=== PATIENT | female | born 1950 | race Caucasian/White ===

== ENCOUNTER 2016-12-19 20:30 | Emergency (ER) | payer SELFPAY ==
[~2016-12-19] VITALS: Ht 157.5 cm; Wt 53.5 kg
--- NOTE | 2016-12-19 21:18 | ED SKIN/ALLERGY COMPLAINT ---
History of Present Illness General Chief Complaint: Animal/Insect Bite Stated Complaint: ?BUG BITE TO L SHOULDER, SWOLLEN PER PT Source: patient Exam Limitations: no limitations Vital Signs & Intake/Output Vital Signs & Intake/Output Vital Signs Date Time Temp Pulse Resp B/P B/P Pulse O2 O2 Flow FiO2 Mean Ox Delivery Rate 12/19 2222 60 162/70 12/193 98.1 70 16 192/98 12/19 2122 98.1 70 16 192/98 12/19 2116 192/98 12/19 2052 98.1 70 16 211/88 98 Room Air ED Intake and Output 12/20 0000 12/19 1200 Intake Total 70 Output Total Balance 70 Intake, Oral 70 Patient 118 lb Weight Weight Estimated Measurement Method Allergies Coded Allergies: No Known Allergies (12/19/16) Reconcile Medications Alendronate Sodium 70 MG TABLET 1 TAB PO QWED BONES (Reported) in the morning, at least 30 minutes before the first food, beverage, or medication of the day Aspirin (Ecotrin*) 81 MG TABLET.DR 1 TAB PO DAILY HEART/BLOOD (Reported) Calcium Carbonate/Vitamin D3 (Calcium 500 + D Tablet) (Unknown Strength) TABLET (Unknown Dose) PO DAILY SUPPLEMENT (Reported) Doxycycline Hyclate 100 MG TABLET 1 TAB PO BID cellulitis Lisinopril 10 MG TABLET 1 TAB PO DAILY BP (Reported) Metoprolol Succinate 25 MG TAB 1 TAB PO DAILY HEART/BP (Reported) Simvastatin (Simvastatin*) 40 MG TABLET 1 TAB PO QPM CHOLESTEROL (Reported) Triamcinolone Acetonide 0.1 % CREAM..G. 0.1 % TOP BID RASH Triage Note: RECEIVED 66 YO FEMALE WITH HX OF LYME DISEASE, C/O BUG BITE ON RIGHT SHOULDER AREA, NOTICED IT THIS AM. PT REPORTS BACK OF NECK IS STIFF Triage Nurses Notes Reviewed? yes Onset: Abrupt Duration: hour(s):, constant, continues in ED Timing: single episode today Severity: moderate, severe Location: extremities No Modifying Factors: none HPI: 66-year-old female comes into emergency room for further evaluation of redness and swelling to left shoulder. Patient reports that she was bitten by some type of bug this morning but she is unsure of symptoms what. Patient has had associated redness and spreading of the redness. She denies any fever. History of high blood pressure. Her doctor is increasing her dose of blood pressure medication on Friday. She denies any chest pain or shortness of breath. Denies it being a tick. Denies any other associated symptoms. (SERA LUNA) Past History Travel History Traveled to [place] past 21 day No Medical History Any Pertinent Medical History? see below for history Neurological: LYME DISEASE X 2 EENT: NONE Cardiovascular: hypertension, hyperlipidemia Respiratory: NONE Gastrointestinal: NONE Hepatic: NONE Renal: NONE Musculoskeletal: osteoporosis Psychiatric: NONE Endocrine: NONE Blood Disorders: NONE Cancer(s): NONE Surgical History Surgical History: non-contributory Psychosocial History What is your primary language Hungarian Tobacco Use: Quit >30 days ago Family History Hx Contributory? No (SERA LUNA) Review of Systems Review of Systems Constitutional: Reports: no symptoms. EENTM: Reports: no symptoms. Respiratory: Reports: no symptoms. Cardiovascular: Reports: no symptoms. GI: Reports: no symptoms. Genitourinary: Reports: no symptoms. Musculoskeletal: Reports: no symptoms. Skin: Reports: see HPI. Neurological/Psychological: Reports: no symptoms. Hematologic/Endocrine: Reports: no symptoms. Immunologic/Allergic: Reports: no symptoms. All Other Systems: Reviewed and Negative (SERA LUNA) Physical Exam Physical Exam General Appearance: well developed/nourished, mild distress Head: atraumatic Eyes: Bilateral: normal appearance. Ears, Nose, Throat: normal ENT inspection, hearing grossly normal Neck: normal inspection Respiratory: no respiratory distress Cardiovascular: regular rate/rhythm Back: normal inspection Extremities: normal inspection, normal range of motion, no edema Neurologic/Psych: awake, alert, oriented x 3, normal mood/affect Skin: intact, rash Skin Problem Location: ERYTHEMA TO LEFT SHOULDER, WARMTH, BLANCHABLE, TENDERNESS WITH PALPATION, Lymphatic: no anterior cervical august (SERA LUNA) Progress Differential Diagnosis: abscess/cellulitis, allergic reaction, angioedema, asthma, contact dermatitis, HYPERTENSIVE URGENCY, HYPERTENSIVE EMERGENCY, Plan of Care: Blood pressure improved. Patient was told to increase her lisinopril to 20 mg daily. Patient started on antibiotics and topical steroid cream. This is likely more of an allergic local reaction from the bite as opposed to cellulitis but due to cellulitis characteristics on exam patient was covered with antibiotics. She clinically looks well. She has no chest pain shortness of breath. No headache. In no apparent distress upon discharge. Blood pressure improved. Have recheck by primary care. (SERA LUNA) Departure Departure Disposition: HOME OR SELF CARE Condition: Stable Clinical Impression Primary Impression: Insect bite Referrals: SUSANNE ASCENCIO,ABE Hernandez (PCP/Family) Additional Instructions: Take doxycycline as prescribed. Use triamcinolone cream as prescribed. Follow- up with your primary care doctor. Increase her lisinopril to 20 mg daily. Please go over all results of today's visit with your primary care doctor. Contact your primary care doctor to let them know you were here in the emergency room. There may be nonspecific findings which may not be related to your visit today here in the emergency room but may require further evaluation and chronic monitoring by your primary care doctor. If you had a laceration today the chance of foreign body always remains. You should follow-up with your primary care doctor for recheck in 3-5 days for a wound check. If you had an x-ray done there is a chance that a fracture could have been missed on initial read and you should follow-up with your primary care doctor for repeat x-rays if symptoms persist. If your blood pressure was elevated here in the emergency room please have rechecked by her primary care doctor within the next 48 hours by your primary care doctor. If you were prescribed a narcotic here in the emergency room or any type of controlled substances you're not allowed to drive while taking this medication or operate any type of heavy machinery. Narcotics can make you feel lightheaded dizziness nausea and can cause constipation. You may need to picker and packer a stool softener. Thank you for choosing [facility] emergency room. Please return to the emergency room immediately if you have any other concerns worsening of symptoms. Departure Forms: Customer Survey General Discharge Information Prescriptions: Current Visit Scripts Doxycycline Hyclate 1 TAB PO BID #14 TAB Triamcinolone Acetonide 0.1 % TOP BID #30 GM (SERA LUNA) PA/SPONGE MAKER Co-Sign Statement Statement: ED Attending supervision documentation- X I saw and evaluated the patient. I have also reviewed all the pertinent lab results and diagnostic results. I agree with the findings and the plan of care as documented in the PA's/SPONGE MAKER's documentation. [] I have reviewed the ED Record and agree with the PA's/SPONGE MAKER's documentation. [] Additions or exceptions (if any) to the PAs/SPONGE MAKER's note and plan are summarized below: [] (JESSICA ASCENCIO,APRIL)
[2016-12-19] MEDS ORDERED: LISINOPRIL10 M1 PO (21:39)
[2016-12-19] MEDS ORDERED: CALCIUM 500 +1 EAC5 PO (21:40)
[2016-12-19] MEDS ORDERED: ALENDRONATE SOD70 M2 PO (21:40)
[2016-12-19] MEDS ORDERED: ASPIRIN EC81 M1 PO (21:40)
[2016-12-19] MEDS ORDERED: METOPROLOL SUCC25 M1 PO (21:40)
[2016-12-19] MEDS ORDERED: SIMVASTATIN40 M1 PO (21:40)
[2016-12-19 22:22] VITALS: BP 162/70
[2016-12-19] MEDS ORDERED: TRIAMCINOLONE A15 G1 TOP (22:22)
[2016-12-19] MEDS ORDERED: DOXYCYCLINE HY100 M4 PO (22:22)
== END 2016-12-19 22:29 ==
LOC: ERH 20:30
DX: S40.262A Insect bite (nonvenomous) of left shoulder, initial encounter (principal); I10 Essential (primary) hypertension; Z87.891 Personal history of nicotine dependence; W57.XXXA Bitten or stung by nonvenomous insect and other nonvenomous arthropods, initial encounter; Y93.9 Activity, unspecified; Y92.9 Unspecified place or not applicable